=== PATIENT | female | born 1990 | race Caucasian/White ===

== ENCOUNTER 2018-04-02 13:54 | Inpatient (IN) ==
[2018-04-02] MEDS: LACTATED RINGERS 1,000 ML IV SCH (14:41)
[2018-04-02] MEDS ORDERED: LACTATED RINGERS 500 ML IV PRN (14:44)
[2018-04-02 15:01] LABS: Basophils % 0.2 % (0.0-0.8); Eosinophils # 0.1 10*3/uL (0.0-0.87); Hematocrit 32.9 VOL% (35.7-47.0); Hemoglobin 10.4 GM/DL (12.0-16.0); Immature Granulocytes Absolute 0.12 #; Lymphocytes # 2.3 10*3/uL (1.4-4.0); Lymphocytes % 18.4 % (21.3-54.2); Mean Corpuscular HGB Conc 31.6 GM/DL (32-36); Mean Corpuscular Hemoglobin 28 PG (27-34); Mean Corpuscular Volume 89.6 FL (87-102); Mean Platelet Volume 12.2 FL (9.6-12.0); Monocytes # 0.7 10*3/uL (0.11-0.8); Monocytes % 5.3 % (1.7-12.7); Neutrophils # 9.4 10*3/uL (1.4-7.4); Neutrophils % 74.1 % (38.7-73.9); Platelet Count 247 T/CUMM (130-400); Red Blood Count 3.67 MC/CUMM (3.8-5.5); White Blood Count 12.6 T/CUMM (4-12)
[2018-04-02] MEDS ORDERED: DINOPROSTONE VAG GEL 10 MG SYRINGE VAG ONE ×2 (16:25→16:35)
[2018-04-02] MEDS: MEPERIDINE 50 MG/1 ML VIAL IV PRN (18:14)
[2018-04-02] MEDS: ONDANSETRON 4 MG/2 ML VIAL IV PRN (18:14)
[2018-04-03] MEDS: ONDANSETRON 4 MG/2 ML VIAL IV PRN ×2 (00:08→06:07)
[2018-04-03] MEDS: MEPERIDINE 50 MG/1 ML VIAL IV PRN ×2 (00:10→06:06)
[2018-04-03] MEDS: LACTATED RINGERS 1,000 ML IV SCH (00:16)
[2018-04-03] MEDS ORDERED: OXYTOCIN/LR 20 UNIT/1,000 ML BAG IV SCH (02:00)
[2018-04-03] MEDS ORDERED: ALUMINUM/MAGNES/SIMETH MAX STR 30 ML UDCUP PO PRN (07:45)
[2018-04-03] MEDS ORDERED: LACTATED RINGERS 1,000 ML IV ONE (08:15)
[2018-04-03] MEDS ORDERED: FAMOTIDINE 20 MG/2 ML VIAL IV ONE (08:15)
[2018-04-03] MEDS ORDERED: CITRIC ACID/SODIUM CITRATE 30 ML UDCUP PO ONE (08:15)
[2018-04-03] MEDS ORDERED: diphenhydrAMINE 50 MG/1 ML VIAL IV PRN ×2 (08:15)
[2018-04-03] MEDS ORDERED: ePHEDrine 50 MG/ML AMP IV PRN (08:15)
[2018-04-03] MEDS ORDERED: NALOXONE 0.4 MG/ML VIAL IV PRN (08:15)
[2018-04-03] MEDS ORDERED: fentaNYL 2 MCG/ROPIV 0.2% EPID 100 ML EPIDURAL SCH (08:30)
[2018-04-03 11:50] LABS: Apearance,Urine CLEAR (Clear); Bilirubin,Urine Negative (Negative); Blood, Urine Negative (Negative); Glucose,Urine (UA) Negative (Negative); Ketones,Urine 5 mg/dL (Negative); Mucus,Urine Occasional /LPF (Occasional); Nitrite,Urine Negative (Negative); Protein,Urine Negative; RBC,Urine 2 /HPF (0-4); Squamous Epithelial Cell,Urine Occasional /HPF (0-10); Urine Color Yellow (Yellow); Urine Specific Gravity 1.017 (1.001-1.035); Urine Urobilinogen < 2.0 EU/DL (0.2-1.0); WBC,Urine 7 /HPF (0-6)
[2018-04-03] MEDS ORDERED: METHYLERGONOVINE 0.2 MG/1 ML AMP ONE (13:32)
[2018-04-03 14:48] LABS: Cord Venous Blood HCO3 19.6 MMOL/L; Cord Venous Blood PCO2 46.8 MMHG; Cord Venous Blood PO2 27.8
[2018-04-03] MEDS ORDERED: oxyCODONE/ACETAMINOPHEN 5-325 MG TABLET PO PRN (17:51)
[2018-04-03] MEDS ORDERED: BISACODYL 10 MG SUPP RECTAL PRN (17:51)
[2018-04-03] MEDS ORDERED: WITCH HAZEL PADS 100/JAR TOP PRN (17:51)
[2018-04-03] MEDS ORDERED: MEASLES/MUMPS/RUBELLA VACCINE 0.5 ML VIAL SUBCUT ONE (17:51)
[2018-04-03] MEDS ORDERED: ACETAMINOPHEN 325 MG TABLET PO PRN (17:51)
[2018-04-03] MEDS ORDERED: LANOLIN 50% CREAM 0.3 OZ TUBE TOP PRN (17:51)
[2018-04-03] MEDS ORDERED: RHO(D) IMMUNE GLOBULIN 300 MCG SYRINGE IM ONE (17:51)
[2018-04-03] MEDS ORDERED: DIPH/TET/ACEL PERT BOOSTER VACCINE 0.5 ML VIAL IM ONE (17:51)
[2018-04-03] MEDS ORDERED: HYDROCORTISONE 2.5% RECTAL CREAM 30 GM TUBE TOP PRN (17:51)
[2018-04-03] MEDS ORDERED: BENZOCAINE 20%/MENTHOL 0.5% SPRAY 56 GM CAN TOP PRN (17:51)
[2018-04-03] MEDS ORDERED: OXYTOCIN/LR 20 UNIT/1,000 ML BAG IV ONE ×2 (17:59→18:01)
[2018-04-03] MEDS: IBUPROFEN 800 MG TABLET PO PRN (18:02)
[2018-04-03] MEDS: oxyCODONE/ACETAMINOPHEN 5-325 MG TABLET PO PRN (19:40)
[2018-04-03] MEDS: DOCUSATE SODIUM 100 MG CAPSULE PO SCH (20:34)
[2018-04-04] MEDS: oxyCODONE/ACETAMINOPHEN 5-325 MG TABLET PO PRN ×3 (04:12→18:03)
[2018-04-04 06:09] LABS: Basophils # 0.1 10*3/uL (0.0-0.2); Basophils % 0.4 % (0.0-0.8); Eosinophils # 0.2 10*3/uL (0.0-0.87); Eosinophils % 1.6 % (0.00-10.9); Hematocrit 31.8 VOL% (35.7-47.0); Hemoglobin 10.2 GM/DL (12.0-16.0); Immature Granulocytes % 0.5 %; Immature Granulocytes Absolute 0.07 #; Lymphocytes # 2.4 10*3/uL (1.4-4.0); Lymphocytes % 16.8 % (21.3-54.2); Mean Corpuscular HGB Conc 32.1 GM/DL (32-36); Mean Corpuscular Hemoglobin 28 PG (27-34); Mean Corpuscular Volume 87.8 FL (87-102); Mean Platelet Volume 11.8 FL (9.6-12.0); Monocytes % 7.3 % (1.7-12.7); Neutrophils # 10.3 10*3/uL (1.4-7.4); Neutrophils % 73.4 % (38.7-73.9); Platelet Count 232 T/CUMM (130-400); Red Blood Count 3.62 MC/CUMM (3.8-5.5); Red Cell Distribution Width 12.8 % (9.3-17.3)
[2018-04-04] MEDS: DOCUSATE SODIUM 100 MG CAPSULE PO SCH ×2 (08:58→21:02)
[2018-04-04] MEDS ORDERED: INFLUENZA VIRUS VACCINE 0.5 ML SYRINGE IM ONE (09:00)
[2018-04-04] MEDS ORDERED: SIMETHICONE CHEW 80 MG TABLET PO PRN (11:25)
[2018-04-05] MEDS: oxyCODONE/ACETAMINOPHEN 5-325 MG TABLET PO PRN ×2 (03:57→11:38)
[2018-04-05] MEDS: IBUPROFEN 800 MG TABLET PO PRN (09:06)
[2018-04-05] MEDS: DOCUSATE SODIUM 100 MG CAPSULE PO SCH (09:06)
[2018-04-05 11:39] VITALS: BP 123/88
== END 2018-04-05 14:10 | disposition home or self-care (01) | DRG 560 ==
LOC: N.LDOUT 13:54 → N.LD 13:56 → N.OB 04-03 18:07
PROVIDERS: ADMIT Obstetrics & Gynecology; ATTEND Obstetrics & Gynecology